=== PATIENT | female | born 1980 | race Caucasian/White ===

== ENCOUNTER 2019-01-31 10:26 | Inpatient (IN) | payer OTHER ==
[2019-01-31 11:24] VITALS: BMI 25.9
[2019-01-31] MEDS ORDERED: Ondansetron PF 4 MG/2 ML Vial IVP PRN ×3 (11:34→14:33)
[2019-01-31] MEDS ORDERED: Lactated Ringer's 1,000 ML IV SCH ×3 (11:34→14:33)
[2019-01-31] MEDS ORDERED: Promethazine HCl 25 MG/ML VIAL IM PRN ×3 (11:34→14:33)
[2019-01-31] MEDS ORDERED: Bicitra 30 ML UDCUP PO SCH (11:34)
[2019-01-31] MEDS ORDERED: Clindamycin/D5W 900 MG in Premix Bag 1 BAG IVPB SCH (11:34)
[2019-01-31] MEDS ORDERED: Gentamicin 80 MG/2 ML VIAL IVPB SCH (11:34)
[2019-01-31] MEDS ORDERED: Fentanyl 100 MCG/2 ML VIAL ONE (11:42)
[2019-01-31] MEDS ORDERED: Metoclopramide HCl 10 MG/2 ML VIAL ONE ×2 (11:42→13:34)
[2019-01-31] MEDS ORDERED: Ondansetron PF 4 MG/2 ML Vial ONE ×2 (11:42→13:34)
[2019-01-31] MEDS ORDERED: ePHEDrine/0.9% NaCl/PF SYRINGE 50 mg/10 ml ONE (11:42)
[2019-01-31] MEDS ORDERED: MORPHINE 5 MG/10 ML PF VIAL ONE (11:42)
[2019-01-31 11:48] LABS: Hemoglobin 13.8 g/dL (12.0-16.0); Mean Corpuscular HGB CONC 33.6 g/dL (32.0-36.0); Mean Corpuscular Hemoglobin 31.6 pg (27.0-31.0); Mean Platelet Volume 10.9 fL (7.4-10.4); Platelet Count 179 thou/uL (130-400); RBC Distribution Width 12.1 % (11.5-14.5); Red Blood Cell (RBC) Count 4.37 mill/uL (4.20-5.40); White Blood Cell (WBC) Count 10.5 thou/uL (4.8-10.8)
[2019-01-31] MEDS ORDERED: Bicitra 30 ML UDCUP ONE (11:48)
[2019-01-31] MEDS ORDERED: Clindamycin/D5W 900 mg/50 ml Premix Bag ONE (11:48)
[2019-01-31] MEDS ORDERED: Gentamicin Sulfate 120 MG in Premix Bag 1 BAG IVPB SCH (12:00)
[2019-01-31] MEDS ORDERED: Oxytocin 10 UNITS/ML VIAL ONE (12:24)
[2019-01-31 12:27] LABS: HBSAg Index 0.24 S/CO (0-0.99); Hep B Surf Ag Non-Reactive S/CO (NonReactive); Syphilis Antibody Nonreactive (Nonreactive); Syphilis Antibody Index 0.06 S/CO (<1.00 Non-Reactive)
[2019-01-31] MEDS ORDERED: HYDROmorphone 2 MG/ML VIAL SLOW IVP PRN (12:55)
[2019-01-31] MEDS ORDERED: Ondansetron HCl/PF 4 MG/2 ML Vial IVP PRN (12:55)
[2019-01-31] MEDS ORDERED: Meperidine HCl/PF 25 MG/ML VIAL SLOW IVP PRN (12:55)
[2019-01-31] MEDS ORDERED: L&D-Morphine 4 MG/ML VIAL SLOW IVP PRN (12:55)
[2019-01-31] MEDS ORDERED: Promethazine HCl 25 MG SUPP PR PRN (12:55)
[2019-01-31] MEDS ORDERED: diphenhydrAMINE 50 MG/ML VIAL IVP PRN (13:00)
[2019-01-31] MEDS ORDERED: Naloxone HCl 0.4 mg/ml Vial IVP PRN ×2 (13:00)
[2019-01-31] MEDS ORDERED: Ketorolac Tromethamine 30 MG/ML VIAL IVP SCH (13:00)
[2019-01-31] MEDS ORDERED: Communication Order-Pharmacy FS SCH (13:00)
[2019-01-31] MEDS ORDERED: Naloxone HCl 0.4 mg/ml Vial IV PRN (13:00)
[2019-01-31] MEDS ORDERED: Ketorolac Tromethamine 30 MG/ML VIAL ONE (13:49)
[2019-01-31] MEDS: Ketorolac Tromethamine 30 MG/ML VIAL IVP PRN ×2 (13:51→21:48)
[2019-01-31] MEDS ORDERED: Ibuprofen 800 MG TAB PO SCH (14:00)
--- NOTE | 2019-01-31 14:21 | OP ---
DATE OF PROCEDURE: 01/31/2019 PREOPERATIVE DIAGNOSES: Thirty-nine weeks gestation, White classification A2 gestational diabetes, previous section x1. POSTOPERATIVE DIAGNOSES: Thirty-nine weeks gestation, White classification A2 gestational diabetes, previous section x1. PROCEDURE PERFORMED: Repeat low transverse section without extension. HOG SCRAPER: Radu Lee DO, MS ANESTHESIA: Subarachnoid block. MEDICATIONS: Gentamicin and clindamycin preincision per protocol. DVT PROPHYLAXIS: SCDs. OPERATIVE FINDINGS: 1. Vigorous female , cephalic presentation, clear fluid, Apgars and weight pending, to nursery. 2. Normal-appearing uterus, tubes, and ovaries bilaterally. 3. Hemostasis, clear urine. COUNTS: Correct at the end of the procedure. PATHOLOGY: Placenta. DISPOSITION: Recovery room in good condition. DESCRIPTION OF PROCEDURE: After obtaining appropriate informed consent, the patient was taken to the operative room, where subarachnoid block was achieved without difficulty. The patient was prepped and draped in the usual manner. Previous Pfannenstiel incision was identified, incised sharply, and carried down to the fascia, where it was incised sharply with curved Bazzi scissors and extended superiorly and laterally. The rectus was dissected off sharply, superiorly, and inferiorly, divided in the midline. Peritoneum entered bluntly, taking care to avoid trauma to the underlying viscera. The Slick O retractor was placed inside. Vesicouterine peritoneal fold was identified and low-transverse hysterotomy was made approximately 1 cm above this level. Clear fluid was encountered upon entry into the uterine cavity and the incision through the uterus was extended superiorly and laterally with finger fractionization. Infant's head elevated to the hysterotomy. The rest of the delivered, suctioned, cord clamped and cut, handed off to the team in attendance. Usual cord blood sample obtained. The placenta was removed manually and sent for pathologic analysis. Uterus was left in-situ. The hysterotomy was noted to be without extension. It was closed using a running locking #1 Monocryl suture x2. Good hemostasis noted after closure. Gutters were irrigated out bilaterally. Reinspection hysterotomy revealed it to be dry. Counts were correct x1. At this point in time, the Slick O retractor was removed. The rectus was inspected and noted to be dry. The fascia was reapproximated using running continuous 0 PDS suture. Subcutaneous tissue irrigated, rendered hemostatic with Bovie cautery and reapproximated using a 2-0 plain gut. Subcuticular 3-0 Monocryl, skin closure was carried out, and Dermabond applied. The patient tolerated the procedure well, was taken to recovery room in good condition. Job ID: [id number]
[2019-01-31] MEDS ORDERED: Lanolin Ointment 7 GM TUBE TOP PRN (14:33)
[2019-01-31] MEDS ORDERED: Simethicone Chewable 80 MG TAB PO PRN (14:33)
[2019-01-31] MEDS ORDERED: NS / Oxytocin 40 units/1000ml 1,000 ML IV SCH (14:33)
[2019-01-31] MEDS ORDERED: Zolpidem Tartrate 5 MG TAB PO PRN (14:33)
[2019-01-31] MEDS ORDERED: diphenhydrAMINE 25 MG CAP PO PRN (14:33)
[2019-01-31] MEDS ORDERED: Acetaminophen 500 MG TAB PO PRN (16:01)
[2019-01-31] MEDS: Docusate Calcium (SURFAK) 240 MG CAP PO SCH (21:48)
[2019-02-01] MEDS ORDERED: Meperidine HCl/PF 25 MG/ML VIAL IM PRN (00:01)
[2019-02-01] MEDS: HYDROcodone/Acetaminophen 5/325 mg Tablet PO PRN ×6 (04:04→20:45)
[2019-02-01] MEDS: Ketorolac Tromethamine 30 MG/ML VIAL IVP PRN (05:40)
[2019-02-01 06:31] LABS: Hemoglobin 10.1 g/dL (12.0-16.0); Mean Corpuscular HGB CONC 32.8 g/dL (32.0-36.0); Mean Corpuscular Hemoglobin 31.3 pg (27.0-31.0); Mean Corpuscular Volume 95.2 fL (78.0-98.0); Mean Platelet Volume 10.7 fL (7.4-10.4); Platelet Count 164 thou/uL (130-400); RBC Distribution Width 12.1 % (11.5-14.5); Red Blood Cell (RBC) Count 3.24 mill/uL (4.20-5.40); White Blood Cell (WBC) Count 10.9 thou/uL (4.8-10.8)
[2019-02-01] MEDS: Prenatal Vitamin 1 TAB PO SCH (08:36)
[2019-02-01] MEDS: Docusate Calcium (SURFAK) 240 MG CAP PO SCH ×2 (08:36→22:00)
[2019-02-01] MEDS ORDERED: Adacel (T-DAP) 0.5 ML SYRINGE IM ONE (09:00)
[2019-02-01] MEDS: Ibuprofen 800 MG TAB PO SCH ×2 (14:31→22:00)
[2019-02-02] MEDS: HYDROcodone/Acetaminophen 5/325 mg Tablet PO PRN ×4 (01:16→18:48)
[2019-02-02] MEDS: Ibuprofen 800 MG TAB PO SCH ×3 (06:33→21:52)
[2019-02-02] MEDS: Prenatal Vitamin 1 TAB PO SCH (09:04)
[2019-02-02] MEDS: Docusate Calcium (SURFAK) 240 MG CAP PO SCH ×2 (09:04→21:52)
[2019-02-03] MEDS: HYDROcodone/Acetaminophen 5/325 mg Tablet PO PRN ×2 (00:34→10:25)
[2019-02-03] MEDS: Ibuprofen 800 MG TAB PO SCH (06:28)
[2019-02-03] MEDS: Docusate Calcium (SURFAK) 240 MG CAP PO SCH (09:06)
[2019-02-03] MEDS: Prenatal Vitamin 1 TAB PO SCH (09:06)
[2019-02-03 11:14] VITALS: BP 121/74; TEMP 98.3
== END 2019-02-03 12:10 | disposition home or self-care (01) | DRG 788 ==
LOC: L&D 10:26 → 3SE 15:13
PROVIDERS: ADMIT Obstetrics & Gynecology; ATTEND Obstetrics & Gynecology
PROC: 10D00Z1 Extraction of Products of Conception, Low, Open Approach (ICD-10-PCS; principal; 2019-01-31)
DX: O24.425 Gestational diabetes mellitus in childbirth, controlled by oral hypoglycemic drugs (principal); O34.211 Maternal care for low transverse scar from previous cesarean delivery; Z3A.39 39 weeks gestation of pregnancy; Z37.0 Single live birth
CPT/HCPCS: 36415; 36416; 51702; 82947; 85027; 86780; 86850; 86900; 86901; 87340; 88307; J1580; J1885; J2270; J2405; J2590; J2765; J3010; J3490; Q0163

== ENCOUNTER 2021-05-22 12:01 | Emergency (ER) | payer BC, OTHER ==
[2021-05-22] MEDS ORDERED: Ketorolac Tromethamine 30 MG/ML VIAL ONE (12:48)
[2021-05-22] MEDS ORDERED: Iopamidol-370 76% 500 ML 1 ML ONE (15:15)
[2021-05-22 19:04] LABS: BHCG - Serum Negative (NEGATIVE); Pregs Control Background? CLEAR/WHITE (CLR/WHITE); Pregs Control Bar Appear? YES (CONTROL BAR)
[2021-05-22 19:21] LABS: Hemoglobin 15.3 g/dL (12.0-16.0); Mean Corpuscular Volume 92.3 fL (78.0-98.0); Red Blood Cell (RBC) Count 4.78 mill/uL (4.20-5.40); White Blood Cell (WBC) Count 10.6 thou/uL (4.8-10.8)
[2021-05-22 19:22] LABS: Anion Gap 18 mmol/L (10-20); BUN (Urea Nitrogen) 10 mg/dL (7.0-18.7); Calc. Creatinine Clearance 0 mL/min (70-130); Carbon Dioxide 20 mmol/L (22-29); Chloride 96 mmol/L (98-107); Mean Corpuscular HGB CONC 34.7 g/dL (32.0-36.0); Mean Platelet Volume 10.2 fL (7.4-10.4); Platelet Count 138 thou/uL (130-400); Potassium 4.2 mmol/L (3.5-5.1); RBC Distribution Width 11.3 % (11.5-14.5); Sodium 130 mmol/L (136-145)
[2021-05-22 19:23] LABS: ALT (SGPT) 15 U/L (8-55); AST (SGOT) 22 U/L (5-34); Albumin 4.1 g/dL (3.5-5.0); Alkaline Phosphatase 85 U/L (40-110); Bilirubin, Total 0.4 mg/dL (0.2-1.2); Calcium 9.2 mg/dL (7.8-10.44); Globulin 3.1 g/dL (2.4-3.5); Glucose 313 mg/dL (70-105); Protein, Total 7.2 g/dL (6.0-8.3)
[2021-05-22 19:24] LABS: Band 20 % (5-11); Lymphocytes 4 % (21-51); MDiff Complete? YES; Monocytes 2 % (0-10); Neutrophil 72 % (42-75)
[2021-05-22 19:25] LABS: Platelet Morphology Comment Appears Adequate; RBC Morphology Normal; Reactive Lymphocytes 2 % (0-10)
== END 2021-05-22 19:00 | disposition home or self-care (01) ==
LOC: ERS 12:01
DX: U07.1 COVID-19 (principal); J12.82 Pneumonia due to coronavirus disease 2019
CPT/HCPCS: 71045; 71275; 80053; 84484; 84703; 85025; 85379; J1885; Q9967

== ENCOUNTER 2021-06-23 10:24 | Outpatient (CLI) | payer BC | END 2021-06-23 10:25 | disposition home or self-care (01) | LOC: BICRAD 10:24 | PROVIDERS: ATTEND Nurse Practitioner Family | DX: Z87.01 Personal history of pneumonia (recurrent) (principal); R91.8 Other nonspecific abnormal finding of lung field | CPT/HCPCS: 71046 ==